=== PATIENT | female | born 1950 | race Hispanic/Latino ===

== ENCOUNTER 2016-12-08 23:20 | Emergency (ER) | payer MEDICAID ==
--- NOTE | 2016-12-09 00:14 | C.PDOC ---
Time Seen by Provider: 12/09/16 00:14 Chief Complaint (Nursing): Lower Extremity Problem/Injury Past Medical History Vital Signs: Last Vital Signs Temp 97.7 F 12/08/16 23:24 Pulse 78 12/08/16 23:24 Resp 16 12/08/16 23:24 BP 139/84 12/08/16 23:24 Pulse Ox 100 12/08/16 23:24 - Medical History PMH: Anxiety, Arthritis (rheumatoid), COPD, Emphysema, Post Traumatic Stress Disorder Family History: States: Unknown Family Hx - Social History Hx Alcohol Use: No Hx Substance Use: No - Immunization History Hx Tetanus Toxoid Vaccination: No Hx Influenza Vaccination: No Hx Pneumococcal Vaccination: No ED Course And Treatment O2 Sat by Pulse Oximetry: 100 Disposition Counseled Patient/Family Regarding: Studies Performed, Diagnosis - Disposition Disposition Time: 00:14
--- NOTE | 2016-12-09 00:51 | C.PDOC ---
History Of Present Illness 66 year old female with a Hx of homelessness, malingering, with multiple evaluations at [facility] since October presents to the ER with a complaint of chronic lower extremity pain and requesting a place to stay the night. Denies other complaints at this time. Time Seen by Provider: 12/09/16 00:14 Chief Complaint (Nursing): Lower Extremity Problem/Injury History Per: Patient History/Exam Limitations: no limitations Onset/Duration Of Symptoms: Days Current Symptoms Are (Timing): Still Present Reports Recently: Seen In ED ([facility]), Treated By A Physician Recent travel outside of the [place]: No Past Medical History Reviewed: Historical Data, Nursing Documentation, Vital Signs Vital Signs: Last Vital Signs Temp 98.5 F 12/09/16 01:21 Pulse 89 12/09/16 01:21 Resp 18 12/09/16 01:21 BP 134/82 12/09/16 01:21 Pulse Ox 97 12/09/16 01:21 - Medical History PMH: Anxiety, Arthritis (rheumatoid), COPD, Emphysema, Post Traumatic Stress Disorder Surgical History: No Surg Hx Family History: States: Unknown Family Hx - Social History Hx Alcohol Use: No Hx Substance Use: No - Immunization History Hx Tetanus Toxoid Vaccination: No Hx Influenza Vaccination: No Hx Pneumococcal Vaccination: No Review Of Systems Constitutional: Negative for: Fever, Chills Gastrointestinal: Negative for: Nausea, Vomiting, Diarrhea Musculoskeletal: Positive for: Leg Pain (Chronic) Physical Exam - Physical Exam Appears: Non-toxic, No Acute Distress, Other (Disheveled, foul smelling, carrying bags with many possessions) Skin: Normal Color, Warm, Dry Head: Atraumatic, Normacephalic Oral Mucosa: Moist Chest: Symmetrical, No Tenderness Cardiovascular: Rhythm Regular, No Murmur Respiratory: Normal Breath Sounds, No Rales, No Rhonchi, No Wheezing Gastrointestinal/Abdominal: Soft, No Tenderness Extremity: Pedal Edema Neurological/Psych: Oriented x3, Normal Speech, Normal Cognition Gait: Steady ED Course And Treatment O2 Sat by Pulse Oximetry: 100 Medical Decision Making Medical Decision Making: malingering, homeless Disposition Doctor Will See Patient In The: Office Counseled Patient/Family Regarding: Studies Performed, Diagnosis - Disposition Referrals: Nurse [facility] [Outside] [facility] [Outside] [facility] [Outside] [facility] [Outside] Disposition: HOME/ ROUTINE Disposition Time: 00:51 Condition: GOOD Additional Instructions: please follow-up with outpatient Technical Inspector for nightly Homeless Long Term Placement. Instructions: Chronic Pain (ED) Forms: [facility] ([place]) - Clinical Impression Clinical Impression: Homelessness, Malingering - Scribe Statement The provider has reviewed the documentation as recorded by the Scribmelvina Hernandez All medical record entries made by the Angibe were at my direction and personally dictated by me. I have reviewed the chart and agree that the record accurately reflects my personal performance of the history, physical exam, medical decision making, and the department course for this patient. I have also personally directed, reviewed, and agree with the discharge instructions and disposition.
[2016-12-09 01:22] VITALS: BP 134/82; PULSE 89; RESP 18; TEMP 98.5
[2016-12-09 06:17] VITALS: O2SAT 100
== END 2016-12-09 01:22 | disposition home or self-care (01) ==
LOC: C.ER 23:20
DX: Z59.0 Homelessness (principal); Z76.5 Malingerer [conscious simulation]